=== PATIENT | male | born 1955 | race Caucasian/White ===

== ENCOUNTER 2017-03-04 19:00 | Emergency (ER) | payer MEDICARE, MEDICAID ==
[~2017-03-04] VITALS: Ht 177.8 cm; Wt 90.7 kg
[~2017-03-04 19:00] MED LIST: AMLO2.5T PO; ATOR20TA PO; CARV6.252 PO; CYAN10006 PO; GABA-534 PO; MULT1TAB73 PO; RIVA10TA PO; SENN8.6T6 PO
--- NOTE | 2017-03-04 19:20 | NUR ---
[facility], PT STATES HE HAS BEEN HAVING PAINFUL URINATION X 5 DAYS DENIES FLANK PAIN. PT AOX4 RR EVEN AND UNLABORED. NO SOB NTOED. NAD NOTED. NO NVD AT THIS TIME. PT GOWNED AND PLACED ON MONITOR WAITING FOR MD HART.
--- NOTE | 2017-03-04 19:28 | NUR ---
DR. MOSCOSO AT BEDSIDE FOR EVAL.
--- NOTE | 2017-03-04 19:30 | NUR ---
PER DR. BLANKA HUANG. LAB DRAW, LAB INFORMED
--- NOTE | 2017-03-04 19:38 | NUR ---
URINE COLLECTED. CALLED LAB FOR CUSTOMER CARE AGENT.
[2017-03-04 19:49] LABS: APPEARANCE,URINE Clear (CLEAR); BILIRUBIN,URINE Negative (NEGATIVE); BLOOD, URINE Small Ery/uL (NEGATIVE); COLOR,URINE Yellow (YELLOW); KETONES,URINE Negative (NEGATIVE); LEUKOCYTE ESTERASE ,URINE Negative (NEGATIVE); NITRITE, URINE Negative (NEGATIVE); PROTEIN,URINE Negative (NEGATIVE); UGLUCOSE Negative (NEGATIVE); UROBILINOGEN,URINE 0.2 EU/dL (0.2)
[2017-03-04 20:00] LABS: ADD URINE CULTURE NO; BACTERIA,URINE Rare /HPF (None Seen); SQUAMOUS EPITHELIAL CELL,UR None Seen /HPF (None Seen); WBC,URINE 0-2 /HPF (0-3)
--- NOTE | 2017-03-04 20:40 | NUR ---
CALLED [facility] FOR TRANSPORTATION GOING BACK TO [facility], ETA 30 MIN.
--- NOTE | 2017-03-04 21:11 | NUR ---
REPORT GIVEN TO MED RESPONSE, MED RESPONSE TOOK OVER CARE, PT AWARE AND WITH ALL BELONGINGS. SPOKE TO [facility]INDER FROM [facility] AND AWARE OF PT TRANSFER.
[2017-03-04 21:13] VITALS: BP 128/68
== END 2017-03-04 21:13 | disposition home or self-care (01) ==
LOC: ER 19:05
DX: R30.0 Dysuria (principal); I10 Essential (primary) hypertension; I69.351 Hemiplegia and hemiparesis following cerebral infarction affecting right dominant side; Z88.8 Allergy status to other drugs, medicaments and biological substances; Z95.1 Presence of aortocoronary bypass graft
CPT/HCPCS: 81001; 87086; 99284; A4606; 81000-TC; Z7610